=== PATIENT | female | born 1985 | race African-American/Black ===

== ENCOUNTER → 2016-12-08 18:51 | Day surgery (SDC) | payer MEDICAID ==
[~2016-12-08] VITALS: Ht 152.4 cm; Wt 77.1 kg
[~2016-12-08 18:51] MED LIST: AMOXICILLIN500 M1 PO; FERROUS SULFAT325 MG PO; HYDROCODON-ACE1 EAC7 PO; MACROBID100 MG PO; MOTRIN600 MG PO; NORVASC10 MG PO; PERCOCET 5-3251 TAB PO; PRENATAL COMPLE1 TAB PO; TYLENOL W/CODEI1 TAB PO
[2016-12-08 22:25] VITALS: BP 139/99
--- NOTE | 2016-12-08 22:25 | NUR ---
PT RECEIVED VIA RECOVERY ROOM NURSE ON STRETCHER TO ROOM 1221 AT THIS TIME. PT SLEEPING, AROUSED EASILY AND ASSISTED WITH MOVING FROM STRETCHER TO BED. VSS. ORIENTED PT TO ROOM AND CALL LIGHT. IV NOTED TO RIGHT A/C INFUSING LR @ 125 CC/HR. PATENT. DRESSING CDI. HEART RRR. LUNG SOUNDS CLEAR BILATERALLY. BOWEL SOUNDS HYPOACTIVE X4 QUADRENTS. ABDOMEN SOFT WITH STERI STRIPS. INCISION NOTED TO UMBILICUS WITH [address] CDI[address] NO REDNESS, SWELLING, OR PURULENT DRAINAGE NOTED. NO BLEEDING NOTED TO BLUE PAD UNDER PT AT THIS TIME. PT SIGNIFICANT OTHER AT BEDSIDE AT THIS TIME. DENIES NEEDS. BED LOW. PHONE AND CALL LIGHT IN REACH. SRX2.
--- NOTE | 2016-12-08 22:28 | NUR ---
THIS RN ASSISTING Raheel MAR RN WITH RECEVING PT AT THIS TIME. PT RESP 14. BREATH SOUNDS CLEAR & UNLABORED. 02 SAT NOTED TO DROP TO 81% WHEN HOB 30 DEGREES. HOB RAISED TO 45 DEGREES AND O2 SAT INCREASED TO 96%.
--- NOTE | 2016-12-08 22:30 | NUR ---
LUNGS ASSESSED PER REQUEST OF Annamaria MAR RN. LUNG SOUNDS CLEAR AT THIS TIME. O2 SAT NOTED TO DIP TO 91%. HOB RAISED TO 90 DEGREES. O2 SAT INCREASED TO 96%. ADV Annamaria MAR RN NOT TO PUSH PAIN MEDICATIONS AT THIS TIME DUE TO PT SEDATION. PT AROUSES UPON LIGHT VERBAL STIMULI, BUT UNABLE TO STAY AWAKE AT THIS TIME.
[2016-12-08 22:40] VITALS: BP 133/89; BP 139/99; Ht 152.4 cm; Wt 77.1 kg
--- NOTE | 2016-12-08 22:43 | NUR ---
MONTSERRAT BRAUN REPORTS SEDATE STATE OF PT. AND REPORT FROM RECOVERY. STATES O2 AT 3 L/MIN AND HOB ELEVATED AND DIPS IN O2 SAT. NOTED PERIODICALLY. THIS NURSE REVIEWED MEDICATION ADMINISTRATION IN RECOVERY AND TO ROOM TO EVAL. PT.
--- NOTE | 2016-12-08 22:50 | NUR ---
THIS NURSE TO PT. ROOM TO EVALUATE REPORT OF SEDATE STATE OF PT. FROM RECOVERY. HOB NOTED TO BE APPROX. 60 DEGREES WITH PT. SLEEPING. LABORED RESPIRATIONS NOTED WITH PT. SLEEPING. 02 SAT. 95-96 AT THIS TIME ON 3L OF O2. RESPIRATORY RATE COUNTED FOR ONE MINUTE 8/MIN. MALE SLEEPING AT BEDSIDE. DR. WHEELER NOTIFIED AND INFORMED OF PT. STATUS TO INCLUDE MEDS GIVEN IN RECOVERY. ORDER RECEIVED FOR NARCAN. NURSE REMAINED WITH PT. WHILE THIS NURSE CALLED .
[2016-12-08 22:55] VITALS: BP 162/106
--- NOTE | 2016-12-08 22:55 | NUR ---
ORDER RECEIVED FROM DR. WHEELER FOR THANIAAN.
--- NOTE | 2016-12-08 22:56 | NUR ---
POC EXPLAINED TO PT. WHICH IS AWAKE AT BRIEF INTERVALS. NARCAN 1MG IVP INFUSION STARTED IVP SLOWLY.
--- NOTE | 2016-12-08 23:01 | NUR ---
NARCAN ADMINISTRATION COMPLETED. PT. C/O FEELING CHILLED AND DRY MOUTH. RESPIRATORY RATE 22. BP 125/77 P-98 AND O2 SAT. 97%. PT. AWAKE AT THIS TIME AND TALKING.
--- NOTE | 2016-12-08 23:08 | NUR ---
ICE CHIPS PROVIDED TO PT. AND WARM BLANKET APPLIED. LESS CHILLING AND SHAKING NOTED PER PT. R-24. BREATH SOUNDS CLEAR. PT. REPORTS THAT SHE HAS HAD ASTHMA IN THE PAST BUT HAS NOT TAKEN ANY MEDS IN SOME TIME. ABD. BANDAID DRESSING DRY AND INTACT. NO VAG. BLEEDING NOTED AT THIS TIME. IV INFUSING IN RT AC AT 125CC/HR.
[2016-12-08 23:10] VITALS: BP 111/75
--- NOTE | 2016-12-08 23:11 | NUR ---
O2 SAT. 96-100%. BP 111/75 P-131. CONTINUES TO HAVE CHILLING AND SHAKING. ROOM TEMP. ADJUSTED.
--- NOTE | 2016-12-08 23:14 | NUR ---
O2 VIA NASAL CANNULA DECREASED TO 2L/MIN.
--- NOTE | 2016-12-08 23:29 | NUR ---
P-83 O2 Sat. 100%. R-20. PT. talking and alert. Pt. has removed nasal cannula and presently off. Pt. requesting to leave o2 off at this time. Explained to pt. that as long as o2 sat. remains above 93 would try to leave off. Pt. with less shaking noted. Male visitor remains at bedside.
[2016-12-08 23:40] VITALS: BP 133/78
--- NOTE | 2016-12-08 23:59 | NUR ---
PT. ASLEEP AT PRESENT AND RESPIRATORY RATE 18 AT THIS TIME. RESPIRATIONS UNLABORED. O2 SAT. 96% AT ROOM AIR.
[2016-12-09 00:10] VITALS: BP 129/71
[2016-12-09 01:10] VITALS: BP 131/80
--- NOTE | 2016-12-09 01:11 | NUR ---
PT RESTING QUIETLY AT THIS TIME WATCHING TV AND ON CELL PHONE. O2 SAT-97% ROOM AIR. PULSE-71. RESPIRATIONS 15, EVEN, NON-LABORED. NO ACUTE DISTRESS NOTED AT THIS TIME. BED LOW. PHONE AND CALL LIGHT IN REACH. SRX2.
--- NOTE | 2016-12-09 01:58 | NUR ---
PT RESTING QUIETLY AT THIS TIME WITH EYES CLOSED. AROUSED EASILY. RESPIRATIONS 16 EVEN, NON-LABORED. NO ACUTE DISTRESS NOTED AT THIS TIME. O2 SAT-94% ROOM AIR. PULSE RATE-100. DENIES NEEDS. BED LOW. PHONE AND CALL LIGHT IN REACH. SRX2.
--- NOTE | 2016-12-09 02:26 | NUR ---
PT RINGS CL. THIS RN TO BEDSIDE. PT REPORTS NEED TO VOID. ASSISTED PT UP TO BATHROOM TO VOID. STEADY GAIT NOTED. CLEAN PANTIES, PERIPAD FOR SCANT SPOTTING PROVIDED. PT BACK TO BED. DENIES PAIN OR FURTHER NEEDS AT THIS TIME.
--- NOTE | 2016-12-09 02:35 | NUR ---
PT STATES SHE IS HUNGRY AND WANTS SOMETHING TO EAT AT THIS TIME. REASSESSED PTS BOWEL SOUNDS. ACTIVE X4 QUADRENTS. PT REQUESTED NEMESIO CRACKERS AND JELLO. DENIES OTHER NEEDS. BED LOW. PHONE AND CALL LIGHT IN REACH. SRX2.
[2016-12-09 03:10] VITALS: BP 138/75
[2016-12-09 04:10] VITALS: BP 147/90
--- NOTE | 2016-12-09 04:12 | NUR ---
PT RESTING QUIETLY AT THIS TIME WITH EYES CLOSED. AROUSED EASILY. DENIES NEEDS AT THIS TIME. BED LOW. PHONE AND CALL LIGHT IN REACH. SRX2.
--- NOTE | 2016-12-09 05:15 | NUR ---
PT RESTING QUIETLY AT THIS TIME. AROUSED EASILY. DENIES NEEDS AT THIS TIME. BED LOW. PHONE AND CALL LIGHT IN REACH. SRX2.
--- NOTE | 2016-12-09 06:04 | NUR ---
PT UP TO USE RESTROOM AT THIS TIME. REQUESTS FRESH ICE WATER. DENIES OTHER NEEDS. BED LOW. PHONE AND CALL LIGHT IN REACH. SRX2.
--- NOTE | 2016-12-09 07:17 | HP ---
PATIENT: CHAPIN MISTRY MEDICAL RECORD: [id number] ACCOUNT: [id number] LOCATION:[facility]12[facility] : 86 ADMISSION DATE: 12/08/16 HISTORY AND PHYSICAL EXAMINATION HISTORY OF PRESENT ILLNESS: Ms Mistry is a 31-year-old 4, para 4 black female, who presented to [facility] with abdominal pain. She was found to have a positive test and an ectopic on the right with fluid in the abdomen. She was transferred to [facility] for definitive treatment. PAST MEDICAL HISTORY: DRUG ALLERGIES: None. CURRENT MEDICATIONS: None. MEDICAL PROBLEMS: Positive for asthma. PREVIOUS SURGERY: Tubal ligation in July 2016. This was done using Filshie clips. The patient states that she had a normal menstrual cycle approximately 4-5 weeks ago, sudden onset of pain earlier this week, gradually getting worse and presentation to the Emergency Room. PHYSICAL EXAMINATION: VITAL SIGNS: Stable. HEENT: Unremarkable. LUNGS: Clear. HEART: Regular rate and rhythm. PELVIC: Deferred for anesthesia. ABDOMEN: Tender throughout with guarding. EXTREMITIES: No cyanosis, clubbing or edema. NEUROLOGICAL: Grossly intact. IMPRESSION: Ectopic . PLAN: Laparoscopy with removal of ectopic . Inspection of tubes and removal of tubes. I have discussed the above planned procedure with the patient and answered all her questions. She understands that more extensive surgery might be necessary depending upon findings. She also understands the potential complications. TRANSINT:[id number] Voice Confirmation ID: [id number] DOCUMENT ID: [id number] HISTORY AND PHYSICAL [id number] CHAPIN MISTRY ROLANDO WHEELER MD at 0717 CC: [id number] DICTATION DATE: 12/08/161923 SUPERVISOR AUDIT CLERKS: 12/08/162152 ADM IN [facility] [address] [place] [address]
--- NOTE | 2016-12-09 07:45 | NUR ---
PATIENT IS AWAKE AND ALERT, SITTING UP IN HER BED WITH HEAD IN HI FOWLERS. SHE STATES THAT SHE IS FEELING SOME PAIN AND REQUESTS SOME MEDICATIONS. DISCUSSED WHAT SHE HAS ORDERED AND SHE DECLINES THE NARCOTIC, REQUESTING A NAPROXEN. VSS. INCISIONS ARE COVERED WITH A STERIPTRIP, NO EVIDENCE OF INFLAMMATION.
[2016-12-09 08:00] VITALS: BP 122/71
[2016-12-09 08:32] LABS: HEMATOCRIT 30.8 % (36.0-48.0); HEMOGLOBIN 9.8 g/dL (12-16); MCH 27.3 pg (26.0-34.0); MCHC 31.8 g/dL (31.0-37.0); MCV 85.8 fL (80.0-100.0); MEAN PLATELET VOLUME 11.6 fL (7.4-10.4); RBC 3.59 10x6/uL (4.00-5.40); RDW 13.7 % (11.5-14.5); WBC 5.5 10x3/uL (4.8-10.8)
--- NOTE | 2016-12-09 09:30 | NUR ---
CALLED TO PHARMACY TO REQUEST THE NAPROXEN.
--- NOTE | 2016-12-09 09:40 | NUR ---
HEBER GIVEN HER NAPROXEN. SHE IS SITTING UPRIGHT IN HER BED, SPOUSE RECLINED IN THE BEDSIDE CHAIR. SHE STATES THAT SHE IS READY TO GO HOME SOON SHE CAN. SHE HAS EATEN A REGULAR BREAKFAST AND DENIES NAUSEA.
--- NOTE | 2016-12-09 10:00 | NUR ---
SPOKE WITH DR. WHEELER. NEW ORDERS RECIEVED. WILL DISCHARGE PATIENT WITH RX FOR TYLENOL #3.
--- NOTE | 2016-12-09 10:30 | NUR ---
REVIEWED DISCHARGE INSTRUCTIONS WITH PATIENT, TYLENOL#3 GIVEN FOR UNRELIEVED PAIN. SHE HAS REPORTED THAT THIS HAS WORKED WELL FOR HER IN THE PAST. SHE DENIES QUESTIONS BUT REQUESTS AN ICE PACK FOR ABDOMINAL DISCOMFORT. PROVIDED. SPOUSE STATES THAT HE DOESN'T MIND PICKING UP HER RX AT THE DR'S OFFICE ON THEIR WAY OUT.
--- NOTE | 2016-12-09 11:13 | NUR ---
PATIENT WHEELED OUT TO WAITING CAR BY VOLUNTEER.
--- NOTE | 2016-12-26 08:25 | OP ---
PATIENT NAME: CHAPIN MISTRY MEDICAL RECORD: [id number] :87 LOCATION:. ADMISSION DATE: SURGEON: YAZ WHEELER MD DATE OF OPERATION: 12/08/2016 PREOPERATIVE DIAGNOSIS: Ectopic . POSTOPERATIVE DIAGNOSIS: Ectopic . PROCEDURE: Laparoscopy with bilateral salpingectomy. SURGEON: Yaz Wheeler MD ANESTHESIA: General. FINDINGS: Ectopic located in the distal portion of the right tube, blood staining at the pelvis and abdomen, clots of approximately 100 cc in the pelvis. Filshie clips present on both the right and left tube near the uterine cornu times 2 each. ESTIMATED BLOOD LOSS: 50 cc. COMPLICATIONS OF SURGERY: None. OPERATIVE NOTE: The patient was taken to the OR and under adequate general anesthesia, prepped and draped in the usual manner for abdominal procedures and vaginal procedures. The anterior lip of the cervix was grasped with tenaculum. Intrauterine manipulator was placed and stabilized. Bladder was catheterized. An elliptical incision was then made at the umbilicus and extended under direct visualization through subcutaneous tissue, fascia and peritoneum. The laparoscopic trocar sleeve was then inserted without difficulty followed by the laparoscope. Findings were as listed above. A second and third puncture were made in the left lower quadrant and suprapubic area under direct visualization. The pelvis was irrigated and suctioned. The right fallopian tube was then cauterized at the uterine cornu and sequentially cauterized and freed and removed via Endopouch through the suprapubic incision. Hemostasis remained good. The left tube was then addressed and treated with bipolar cautery at the uterine cornu and was sequentially cauterized along its portion distally and excised. This tube was also placed in an Endopouch and removed. Pelvis was then copiously irrigated and hemostasis was good. All instruments were then removed after deflating the abdomen. Fascial layer at the umbilicus and suprapubic incisions was closed using a single interrupted #1 Vicryl suture. Skin incisions were closed using Dermabond. Steri-Strip dressings were applied. The Bridges catheter was removed prior to leaving the OR. All vaginal instruments were removed and the patient went to the recovery area in good condition. TRANSINT:[id number] Voice Confirmation ID: [id number] DOCUMENT ID: [id number] 12/13/2016 Edited to correct date of surgery. OPERATIVE REPORT [id number] CHAPIN MISTRY BRENDA MD at 0825 CC: [id number] DICTATION DATE: 12/09/16725 NETWORK DESIGNER: 12/09/16 1114 [facility] 12/08/16 [place] [id number] [place] [id number]
== END | disposition home or self-care (01) ==
LOC: OBSVTIME → D.ER 18:51 → EDSTATUS 20:15 → D.WS 22:00 → OBSVTIME 22:00 → D.ER 22:00 → D.WS 22:00
PROVIDERS: Obstetrics & Gynecology
DX: O00.90 Unspecified ectopic pregnancy without intrauterine pregnancy (principal); J45.909 Unspecified asthma, uncomplicated

== ENCOUNTER 2016-12-10 10:28 | Inpatient (IN) | payer MEDICAID ==
[~2016-12-10] VITALS: Ht 152.4 cm; Wt 77.3 kg
--- NOTE | ~2016-12-10 | DS ---
PATIENT:CHAPIN MISTRY :87 MEDICAL RECORD: [id number] DISCHARGE SUMMARY ADMISSION DATE: 12/10/16 DISCHARGE DATE: 12/13/16 DATE OF SERVICE: 12/13/2016. PREOPERATIVE DIAGNOSIS: Acute incarcerated incisional hernia with small-bowel obstruction. PROCEDURE: Open acute incarcerated incisional hernia repair without mesh. HOSPITAL COURSE: The patient was admitted through the Emergency Room. She underwent the above operative procedure. There was no evidence of strangulation. Preoperative attempts at reduction of the hernia had failed. She had return of bowel function. She was tolerating a diet. She is being dismissed home on hydrocodone for pain. I will see her in the office in 2-3 weeks. TRANSINT:[id number] Voice Confirmation ID: [id number] DOCUMENT ID: [id number] SAMEER PHAN MD CC: [id number] DICTATION DATE: 12/13/161835 BIOPSYCHOLOGIST: 12/14/16 0144 DIS IN 12/13/16 [id number] [place] [address]
--- NOTE | ~2016-12-10 | OP ---
PATIENT NAME: CHAPIN MISTRY MEDICAL RECORD: [id number] :87 LOCATION:[facility] ADMISSION DATE:12/10/16 SURGEON: SAMEER PHAN MD DATE OF OPERATION: 12/11/2016 PREOPERATIVE DIAGNOSIS: Acute incarcerated incisional hernia with small bowel obstruction. POSTOPERATIVE DIAGNOSIS: Acute incarcerated incisional hernia with small bowel obstruction without evidence of strangulation. PROCEDURE: Open acute incarcerated incisional hernia repair without mesh. SURGEON: Sameer Phan MD NURSING HOME ADMINISTRATOR: None. BLOOD LOSS: Less than 25 cc. ANESTHESIA: General. COMPLICATIONS: None. OPERATIVE COURSE: The patient was conveyed to the operating room urgently on 12/11/2016. General anesthesia was induced by the anesthesia staff. The abdomen was sterilely prepped and draped. An incision was accomplished starting at the umbilicus and continuing inferiorly. I dissected down to the acute hernia, which did not contain a sac. I had to enlarge the hernia defect a bit to exteriorize some of the small bowel. There was 1 weak area in the serosa that was oversewn with a single horizontal mattress 3-0 silk suture. I ran a good portion of the small bowel. There was edema of the incarcerated portion of the small bowel as well as erythema, but no evidence of gangrene. I then returned the contents into the peritoneal cavity. The herniorrhaphy was accomplished with multiple interrupted horizontal mattress of 0 Surgidac. I then overran the fascial closure with #1 Vicryl. The subdermis was approximated with interrupted 3-0 Vicryls. The skin was approximated with interrupted 4-0 Vicryl Rapide for the umbilicus and then multiple interrupted horizontal mattress 3-0 Vicryl Rapide for the skin. Sterile dressings were applied. The patient was then extubated and conveyed to post-anesthesia care unit where she was in stable condition. She will need to be admitted to the hospital to watch for a return of bowel function. TRANSINT:[id number] Voice Confirmation ID: [id number] DOCUMENT ID: [id number] SAMEER PHAN MD CC: MENDEL CASTRO MD and ROLANDO WHEELER MD [id number] DICTATION DATE: 12/13/16 1833 PEACH GROWER: 12/13/162110 DIS IN 12/13/16 [facility] [address] [place] [address]
--- NOTE | ~2016-12-10 | PN ---
PATIENT:CHAPIN MISTRY MEDICAL RECORD: [id number] LOCATION:[facility] ADMISSION DATE: 12/10/16 PROGRESS NOTE DATE OF SERVICE: 12/13/2016 Progress Note Addendum CHIEF COMPLAINT: Pain. For the typed portion of the progress note, please see the chart. This would include the past medical, surgical history, allergies, family history, as well as current medications. The patient states that the day after undergoing an operation for an ectopic , she developed a supraumbilical mass as well as pain, nausea and vomiting. I have reviewed the CT images. I have reviewed the CT report. I attempted reduction of the hernia and this has been unsuccessful. The patient is going to undergo an open repair without mesh. As there is a possibility of strangulation, I told her that it may require an intestinal resection and the mesh would not be used during the herniorrhaphy. PHYSICAL EXAMINATION: GENERAL: The patient appears acutely ill. She does not appear chronically ill. The entire physical examination was performed in the presence of a female nurse. HEAD: External ears appear normal. EYES: Extraocular movements are intact. NECK: Trachea is midline. CHEST: No intercostal retractions. PULMONARY: Nonlabored. No stridor. ABDOMEN: Tender with skin changes inferior to the umbilicus. IMPRESSION: Acute incarcerated incisional hernia with small-bowel obstruction. PLAN: Open repair without mesh. TRANSINT:[id number] Voice Confirmation ID: [id number] DOCUMENT ID: [id number] SAMEER PHAN MD CC: [id number] DICTATION DATE: 12/13/161829 FRONT DESK SUPERVISOR: 12/13/162032 ADM IN [facility] [address] [id number]
--- NOTE | ~2016-12-10 | HP ---
PATIENT: CHAPIN CLEMENTE MEDICAL RECORD: [id number] ACCOUNT: [id number] LOCATION:[facility] : 87 ADMISSION DATE: 12/10/16 HISTORY AND PHYSICAL EXAMINATION ADDENDUM I have just been told that Ms. Clemente was admitted to [facility] Dr. Wheeler was the operative surgeon several days ago for an ectopic . This was performed laparoscopically. I went to the patient's bedside immediately upon hearing that she had been admitted to [facility]. I have reviewed her CT scan. She had peau d'orange and swelling inferior to the umbilical trocar site. I believe I was able to reduce the hernia in its entirety. The patient had her operation on . She states that she started feeling poorly on Monday and today is Monday. I am going to obtain a repeat CT scan to ensure that the hernia has been reduced in its entirety. REVIEW OF SYSTEMS: Positive for nausea and vomiting. No fever, no chills. Positive for abdominal pain This is a history and physical addendum. For the typed portion of the history and physical, please see the chart. That would include past medical and surgical history, allergies, current medications and social history. PHYSICAL EXAMINATION: GENERAL: The patient appears acutely ill. She does not appear chronically ill. VITAL SIGNS: Reviewed. HEENT: Head: External ears appear normal. Eyes: Extraocular movements are intact. NECK: Trachea is midline. CHEST: No intercostal retractions. PULMONARY: Nonlabored, no stridor. ABDOMEN: Tenderness inferior to the umbilicus where there is a mass. EXTREMITIES: No peripheral cyanosis. BACK: No thoracic kyphosis. LYMPHATICS: No lymphangitic streaking of the exposed extremities. PSYCHIATRIC: Anxious. NEUROLOGIC: Answers questions appropriately, moves all extremities. IMPRESSION: Early incarcerated incisional hernia with a small-bowel obstruction. PLAN: I am going to obtain a repeat CT scan to see if I was able to manually reduce the incarcerated contents. TRANSINT:[id number] Voice Confirmation ID: [id number] DOCUMENT ID: [id number] HISTORY AND PHYSICAL [id number] CHAPIN CLEMENTE SAMEER PHAN MD CC: ROLANDO WHEELER MD [id number] DICTATION DATE: 12/10/162302 COMPO CONVEYOR OPERATOR: 12/11/16 0107 ADM IN [facility] [address] [place] [address]
[~2016-12-10 10:28] MED LIST changes: -HYDROCODON-ACE1 EAC7 PO
[2016-12-10 11:24] LABS: BASOPHILS 0.1 % (0.0-2.0); EOSINOPHILS 0.4 % (0-7); HEMATOCRIT 34.8 % (36.0-48.0); HEMOGLOBIN 11.4 g/dL (12-16); IMMATURE GRANULOCYTES 0.1 % (0-5); LYMPHOCYTES 13.8 % (15-50); MCH 28.3 pg (26.0-34.0); MCHC 32.8 g/dL (31.0-37.0); MCV 86.4 fL (80.0-100.0); MEAN PLATELET VOLUME 11.8 fL (7.4-10.4); MONOCYTES 4.6 % (2-11); RBC 4.03 10x6/uL (4.00-5.40); RDW 13.5 % (11.5-14.5)
[2016-12-10 11:25] LABS: PLATELET COUNT 160 10x3/uL (130-400); WBC 7.2 10x3/uL (4.8-10.8)
[2016-12-10 11:34] LABS: HCG SERUM POSITIVE (NEGATIVE)
[2016-12-10 14:35] LABS: ALBUMIN 3.7 g/dL (3.4-5.0); ALKALINE PHOSPHATASE 82 U/L (46-116); ALT (SGPT) 35 U/L (10-68); BILIRUBIN - TOTAL 0.52 mg/dL (0.2-1.3); CALC OSMOLALITY 271 mosm/kg (275-300); CALCIUM 8.6 mg/dL (8.5-10.1); CARBON DIOXIDE 24.1 mmol/L (21.0-32.0); CHLORIDE - SERUM 102 mmol/L (98-107); CREATININE - SERUM 0.7 mg/dL (0.6-1.3); POTASSIUM - SERUM 3.5 mmol/L (3.5-5.1); PROTEIN - SERUM 8.7 g/dL (6.4-8.2); SODIUM 137 mmol/L (136-145); UREA NITROGEN 4 mg/dL (7-18); eGFR NON AFRICAN AMERICAN > 90 mL/min (90-120)
[2016-12-10 14:36] LABS: GLUCOSE 115 mg/dL (74-106)
--- NOTE | 2016-12-10 16:39 | NUR ---
Patient Name: CHAPIN MISTRY Admission Status: ER Accout number: [id number] Admission Date: 12-10-2016 : 1985 Admission Diagnosis: SBO Attending: CARLOS ALBERTO Current LOS: 1 Anticipated DC Date: 12-13-2016 Planned Disposition: Home Primary Insurance: [employer] Discharge Planning Comments: Cm met with patient to complete initial discharge planning assessment. Patient gave consent to complete assessment. Patient reports she lives home with her 5 kids. She reports she is independent in her care at home. She denied use of DME or community resources. Patient plans to return home at discharge. CM will continue to follow and assist with dc plan/needs. Sterile Processing Technician: Angella Calixto RN, [facility] [phone] Is the patient Alert and Oriented? Yes * How many steps to enter\exit or inside your home? two * PCP Dr. Malone * Pharmacy [facility] in [place] * Preadmission Environment Home with Family * ADLs Independent * Equipment None * List name and contact numbers for known caregivers / representatives who currently or will assist patient after discharge: Julienne Mistry - mother - [phone] * Additional services required to return to the preadmission environment? No * Can the patient safely return to the preadmission environment? Yes * Has this patient been hospitalized within the prior 30 days at any hospital? No Grand Total: 0
--- NOTE | 2016-12-10 17:15 | NUR ---
PATIENT RECEIVED TO FLOOR FROM ER VIA STRETCHER. NO SIGNS OF DISTRESS NOTED. PATIENT TRANSFERRED SELF TO BED AND POSITIONED FOR COMFORT. FAMILY AT BEDSIDE. ORIENTED TO ROOM. SIDE RAILS UP X2. BED IN LOW POSITION. CALL LIGHT IN REACH.
[2016-12-10 17:38] VITALS: BP 134/72; Ht 152.4 cm; Wt 77.3 kg
--- NOTE | 2016-12-10 19:40 | NUR ---
PATIENT LAYING IN BED WITH FAMILY AT BED SIDE. PATIENT REQUESTED PAIN AND NAUSEA MEDICATION AND WANTED TO KNOW WHEN SHE IS ON THE SCHEDULE FOR SURGERY. NG TUBE CLEARED, ON LOW INTERMITTENT SUCTION. 20G PIV TO RIGHT HAND. BED IN LOWEST LOCKED POSITION, CALL LIGHT WITHIN REACH.
--- NOTE | 2016-12-10 20:23 | NUR ---
DILADID AND ZOFRAN GIVEN FOR PAIN AND NAUSEA. 8/10 ACHING PAIN TO THE ABDOMEN NOTED BY PATIENT.
--- NOTE | 2016-12-10 23:11 | NUR ---
DR PHAN SAW PATIENT AND MANIPULATED THE ABDOMEN SOME MANUALLY. REGLAN WAS ADDED PRN FOR NAUSEA. CT WILL BE REORDERED TO CHECK FOR CHANGES IN [facility].
--- NOTE | 2016-12-10 23:21 | NUR ---
RADIOLOGY CALLED AND INFORMED OF STAT CT ABDOMEN/PELVIS
--- NOTE | 2016-12-10 23:35 | NUR ---
RADIOLOGY TOOK PATIENT TO HAVE CT
--- NOTE | 2016-12-10 23:56 | NUR ---
PATIENT RETURNED FROM CT. RESARTED NGT LOW INTERMITENT SUCTION AND PIV IN LEFT HAND. PATIENT STATED SHE DOESN'T HAVE ANY NAUSEA AT THIS TIME AND IS GOING TO TRY AND SLEEP.
[2016-12-11] VITALS (12 sets, daily range): BP systolic 116–159; BP diastolic 54–96
--- NOTE | 2016-12-11 04:09 | NUR ---
FLUSHED NG TUBE WITH 60mL H2O. FLUSH REQUESTED BY DR PHAN.
--- NOTE | 2016-12-11 05:32 | NUR ---
PT IS AWAKE AND FAMILY MEMBER IS ASLEEP IN THE ROOM. SHE IS WAITING FOR AM SURGERY SO IS NPO AND HAS A HIBICLENS BATH ORDERED THIS AM. TELEMETRY IN IN PLACE. AND SHE HAS NO COMPLAINTS AT THIS TIME. BED IS LOW,RAILS UP X'S 2 WITH THE CALL LIGHT AT HAND.
--- NOTE | 2016-12-11 05:59 | NUR ---
CHANGED NGT SUCTION CANISTER OUT, PATIENT WANTED TO TAKE A SHOWER BEFORE SURGERY
--- NOTE | 2016-12-11 07:37 | NUR ---
PATIENT PREOP MEDICATIONS GIVEN, BEING TRANSFERED BY BED TO SURGERY.
--- NOTE | 2016-12-11 07:40 | NUR ---
AWAKE AND ALERT. ORIENTED X3. C/O NAUSEA THIS AM. GIVEN SCHEDULED REGLAN DOSE AT THIS TIME. LUNGS ARE CLEAR BILATERALLY,NO COUGH NOTED. SKIN IS INTACT WITHOUT REDNESS. NG TO RIGHT NARE PATENT CLAMPED AT THIS TIME. AT BEDSIDE. IV TO LEFT WRIST PATENT WTTHOUT REDNESS AT INSERTION SITE. SL TO RIGHT AC PATENT ALSO. DENIES NEEDS. OFF UNIT VIA BED TO OR.
--- NOTE | 2016-12-11 09:45 | NUR ---
RETURENED FROM PROCEDURE. VSS
--- NOTE | 2016-12-11 10:25 | NUR ---
DILAUDID FIRE CONTROL ASSISTANT INITIATED. PATIENT REQUESTED DOSE BE HALF OF ORDERED DOSE, 0.1MG Q 10 MIN. PUMP SET TO PATIENTS REQUEST.
--- NOTE | 2016-12-11 12:30 | NUR ---
RESTING QUIETLY IN BED. NO C/O VOICED. AT BEDSIDE.
--- NOTE | 2016-12-11 14:00 | NUR ---
UP TO BR WITH ONE PERSON MIN ASSIST. VOIDED CLEAR YELLOW URINE. SKIN CARE PER SELF. REPOSITIONED IN BED FOR COMFORT.
--- NOTE | 2016-12-11 15:37 | NUR ---
RESTING QUIETLY IN BED. REQUESTED AND GIVEN A FEW ICE CHIPS TO EASE THROAT. WILL MONITOR.
--- NOTE | 2016-12-11 18:10 | NUR ---
CONTINUES WITH C/O THROAT IRRITATION R/T NG TUBE. NO CHANGES NOTED. ABDOMINAL BINDER IN PLACE DRY AND INTACT.
[2016-12-12] VITALS: BP 130/86
--- NOTE | 2016-12-12 01:35 | NUR ---
PATIENT RESTING IN BED AND DENIES NEEDS AT THIS TIME. BED IN LOWEST POSITION AND CALL LIGHT WITHIN REACH. ENCOURAGED PATIENT TO CALL IF SHE HAS FURTHER NEEDS.
--- NOTE | 2016-12-12 05:41 | NUR ---
NGT REMOVED AT THE BEGINING OF SHIFT. NO C/O PAIN OR NAUSEA. TOLERATED CLEAR LIQUID DIET. DID COMPLAIN OF SOME STOMACH BURNING IN ABDOMEN. NO OTHER NEEDS NOTED BY PATIENT THROUGH THE NIGHT.
--- NOTE | 2016-12-12 07:45 | NUR ---
AWAKE ALERT COLOR ADQ SKIN WARM AND DRY RESP EVEN AND UNLABORED AT PRESENT CLINICAL ASSISTANT IN PLACE AT PRESENT.
[2016-12-12 07:50] VITALS: BP 129/85
--- NOTE | 2016-12-12 10:30 | NUR ---
AMB IN [facility] WITH DIANA WELL AT PRESENT.
[2016-12-12 12:10] VITALS: BP 141/72
--- NOTE | 2016-12-12 12:18 | NUR ---
QUIET IN ROOM AT PRESENT DENIES ANY NEEDS AT THIS TIME AT BEDSIDE AT PRESENT.
[2016-12-12 16:05] VITALS: BP 138/72
--- NOTE | 2016-12-12 17:00 | NUR ---
SHOWER TAKEN DSG CHGD TO ABD INCISION DIANA WELL AT PRESENT.
--- NOTE | 2016-12-12 17:45 | NUR ---
REC'D PATIENT LYING IN BED. ALERT AND ORIENTED X4. AT BEDSIDE. DENIES PAIN AT THIS TIME. INQUIRED ABOUT MILK OF MAG THAT SHE WAS TO GET AT BEDTIME, LET HER KNOW THAT SHE IS GOING TO START IT TONIGHT. DENIED FURTHER NEEDS AT THIS TIME. INTRUCTED TO CALL IF NEEDED ANYTHING. VERBALIZED UNDERSTANDING. BED LOW, LOCKED, CALL LIGHT IN REACH.
[2016-12-12 19:00] VITALS: BP 126/75
--- NOTE | 2016-12-12 21:30 | NUR ---
ADMINISTERED MEDS PRESCRIBED. WANTED TO KNOW HOW LONG IT WOULD TAKE BEFORE A BM WOULD BE PRODUCED, EDUCATED HER ON THAT. ALSO EDUCATED NOT TO STRAIN IF SHE WERE TO HAVE A BM WELL. VERBALIZED UNDERSTANDING. BED LOW, LOCKED, CALL LIGHT IN REACH/
--- NOTE | 2016-12-13 01:07 | NUR ---
EYES CLOSED RESPIRATIONS WITH EASE AND UNLABORED. SR UP X2 CALL LIGHT WITHIN REACH.
[2016-12-13 01:32] VITALS: BP 130/72
--- NOTE | 2016-12-13 01:59 | NUR ---
PATIENT RESTING IN BED COMFORTABLY. IS AT BEDSIDE. DENIED PAIN AT THIS TIME. DENIED FURTHER NEEDS. INTRUCTED TO CALL IF NEEDED ANYTHING. BED LOW, LOCKED, CALL LIGHT IN REACH.
[2016-12-13 04:00] VITALS: BP 127/67
--- NOTE | 2016-12-13 05:41 | NUR ---
PATIENT RESTING COMFORTABLY IN BED. DENIES PAIN AT THIS TIME. DENIES FURTHER NEEDS AT THIS TIME. INSTUCTED TO CALL IF NEEDED ANYTHING. BED LOW, LOCKED, CALL LIGHT IN REACH.
[2016-12-13 08:37] VITALS: BP 121/75
--- NOTE | 2016-12-13 09:10 | NUR ---
PATIENT OUT OF THE SHOWER. CHANGED PATIENT'S DRESSING, CLEANED WITH STERILE WOUND ROAD SUPERVISOR AND PATTED DRY WITH 4X4S APPLIED NEW BORDERED GAUZE.
[2016-12-13 12:24] VITALS: BP 162/91
--- NOTE | 2016-12-13 14:25 | NUR ---
NUTRITION MONITORING & EVAL PT VISIT. NOW RECEIVING REG DIET. WILL HONOR FOOD PREFERENCES, MONITOR PT PROGRESS. RD FOLLOWING
[2016-12-13 16:26] VITALS: BP 146/81
--- NOTE | 2016-12-13 18:45 | NUR ---
REMOVED BORDERED GAUZE DRESSING. APPLIED NEW BORDERED GAUZE DRESSING.
[2016-12-13] MEDS ORDERED: HYDROCODON-ACE1 EAC7 PO (19:17)
== END 2016-12-13 20:35 | disposition home or self-care (01) | DRG 769 ==
LOC: D.ER 10:28 → D.MS 15:30
PROVIDERS: Family Medicine; Nurse Practitioner Acute Care; ADMIT Surgery
PROC: 0WQF0ZZ Repair Abdominal Wall, Open Approach (ICD-10-PCS; principal; 2016-12-11 08:00)
DX: O08.89 Other complications following an ectopic and molar pregnancy (principal); K43.0 Incisional hernia with obstruction, without gangrene; O99.335 Smoking (tobacco) complicating the puerperium

== ENCOUNTER 2016-12-16 16:20 | Emergency (ER) | payer MEDICAID ==
[2016-12-10 17:38] VITALS: BMI 33.2
[~2016-12-16 16:20] MED LIST changes: +HYDROCODON-ACE1 EAC7 PO
[2016-12-16 16:51] LABS: BASOPHILS 0.2 % (0.0-2.0); EOSINOPHILS 3.1 % (0-7); HEMOGLOBIN 10.8 g/dL (12-16); LYMPHOCYTES 26.8 % (15-50); MCH 28.1 pg (26.0-34.0); MCHC 32.7 g/dL (31.0-37.0); MCV 85.7 fL (80.0-100.0); MEAN PLATELET VOLUME 10.5 fL (7.4-10.4); MONOCYTES 5.2 % (2-11); NEUTROPHILS 64.7 % (40-80); PLATELET COUNT 186 10x3/uL (130-400); RBC 3.85 10x6/uL (4.00-5.40); RDW 13.5 % (11.5-14.5); WBC 5.4 10x3/uL (4.8-10.8)
[2016-12-16 17:13] LABS: ALBUMIN 3.5 g/dL (3.4-5.0); ALKALINE PHOSPHATASE 68 U/L (46-116); ALT (SGPT) 19 U/L (10-68); BILIRUBIN - TOTAL 0.41 mg/dL (0.2-1.3); CALC OSMOLALITY 278 mosm/kg (275-300); CALCIUM 8.6 mg/dL (8.5-10.1); CARBON DIOXIDE 29.2 mmol/L (21.0-32.0); CHLORIDE - SERUM 104 mmol/L (98-107); CREATININE - SERUM 0.8 mg/dL (0.6-1.3); GLUCOSE 94 mg/dL (74-106); POTASSIUM - SERUM 3.3 mmol/L (3.5-5.1); PROTEIN - SERUM 8.1 g/dL (6.4-8.2); SODIUM 141 mmol/L (136-145); UREA NITROGEN 8 mg/dL (7-18); eGFR NON AFRICAN AMERICAN 89 mL/min (90-120)
[2016-12-16 18:06] LABS: INR 1.05 (0.85-1.17); PROTIME 13.6 SECONDS (11.6-15.0)
[2016-12-16 18:07] LABS: APTT 28.6 SECONDS (22.8-39.4)
[2016-12-16 18:16] LABS: HELICOBACTER PYLORI IGG NEGATIVE (NEGATIVE)
== END 2016-12-16 18:30 | disposition home or self-care (01) ==
LOC: D.ER 16:20
PROVIDERS: Emergency Medicine; Physician Assistant Medical
DX: K92.2 Gastrointestinal hemorrhage, unspecified (principal); K42.9 Umbilical hernia without obstruction or gangrene; I10 Essential (primary) hypertension